=== PATIENT | female | born 1970 | race Caucasian/White ===

== ENCOUNTER 2020-12-02 06:26 | Day surgery (SDC) | payer OTHER, SELFPAY ==
[~2020-12-02] VITALS: Ht 154.9 cm; Wt 72.6 kg
[2020-12-02] MEDS ORDERED: fentaNYL citrate 0.05 MG/ML VIAL ONE (07:30)
[2020-12-02] MEDS ORDERED: LIDOCAINE 2% 100 MG/5 ML UJET TP ONE (07:30)
[2020-12-02] MEDS ORDERED: fentaNYL citrate 0.05 MG/ML VIAL IVP SCH (08:35)
== END 2020-12-02 08:30 | disposition home or self-care (01) ==
LOC: MDS 06:26 → MMU 06:27 → MDS 08:30
PROVIDERS: ATTEND Internal Medicine Gastroenterology
DX: Z12.11 Encounter for screening for malignant neoplasm of colon (principal); K57.30 Diverticulosis of large intestine without perforation or abscess without bleeding; Z79.899 Other long term (current) drug therapy; Z20.822 Contact with and (suspected) exposure to COVID-19
CPT/HCPCS: 45378; 71045; J3010; U0003

== ENCOUNTER 2020-12-05 06:11 | Day surgery (SDC) | payer OTHER, SELFPAY ==
[~2020-12-05] VITALS: Ht 154.9 cm; Wt 72.6 kg
[2020-12-05] MEDS ORDERED: BUPIVACAINE-MPF 0.25% 30 ML VIAL INJ ONE (07:22)
[2020-12-05] MEDS ORDERED: KETOROLAC 30 MG/ML VIAL ONE (08:00)
[2020-12-05] MEDS ORDERED: fentaNYL citrate 0.05 MG/ML VIAL ONE (08:00)
[2020-12-05] MEDS ORDERED: PROPOFOL 200 MG/20 ML VIAL IV ONE (08:00)
[2020-12-05] MEDS ORDERED: LIDOCAINE 2% 100 MG/5 ML SYR IVP ONE (08:00)
[2020-12-05] MEDS ORDERED: SEVOFLURANE 250 ML BTL INH ONE (08:00)
[2020-12-05] MEDS ORDERED: ePHEDrine 50 MG/ML VIAL ONE (08:00)
[2020-12-05] MEDS ORDERED: MIDAZOLAM 5 MG/1 ML VIAL ONE (08:00)
[2020-12-05] MEDS ORDERED: diphenhydrAMINE 50 MG/ML VIAL IVP PRN (08:25)
[2020-12-05] MEDS ORDERED: LACTATED RINGERS 1,000 ML IV SCH (08:25)
[2020-12-05] MEDS ORDERED: HYDROmorphone 1 MG/ML AMP IVP PRN ×2 (08:25→09:05)
[2020-12-05] MEDS ORDERED: ONDANSETRON 4 MG/2 ML VIAL IVP PRN (08:25)
[2020-12-05] MEDS ORDERED: MEPERIDINE 25 MG/ML SYR IVP PRN (08:25)
[2020-12-05] MEDS ORDERED: HYDROcodone/APAP 5/325 MG 1 TAB TAB PO PRN (09:05)
[2020-12-05] MEDS ORDERED: ONDANSETRON 4 MG/2 ML VIAL IV PRN (09:05)
[2020-12-05] MEDS ORDERED: MORPHINE SULFATE 4 MG/ML SYR IV PRN (09:05)
[2020-12-05] MEDS ORDERED: MORPHINE SULFATE 2 MG/ML SYR IVP PRN (09:05)
== END 2020-12-05 10:40 | disposition home or self-care (01) ==
LOC: MDS 06:11 → MMU 06:25 → MDS 10:40
PROVIDERS: ATTEND Surgery
DX: D24.1 Benign neoplasm of right breast (principal); Z79.899 Other long term (current) drug therapy
CPT/HCPCS: 19301; 76942; J0690; J1885; J2001; J2250; J2704; J3010; J3490; J7060